=== PATIENT | female | born 2005 | race Caucasian/White ===

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

== ENCOUNTER 2023-11-02 18:15 | Emergency (ER) | payer MEDICAID ==
[~2023-11-02] VITALS: Ht 154.9 cm; Wt 48.2 kg
[~2023-11-02 18:15] MED LIST changes: +ALBU6.7H14 INH; -ALBU6.7H9 INH
[2023-11-02 18:19] VITALS: BP 113/66; PULSE 80; RESP 17; TEMP 97.7; O2SAT 97
== END 2023-11-02 19:14 | disposition left against medical advice (07) ==
LOC: ER 18:15
DX: U07.1 COVID-19 (principal); Z53.21 Procedure and treatment not carried out due to patient leaving prior to being seen by health care provider
CPT/HCPCS: 36415; 87811

== ENCOUNTER 2023-11-07 16:28 | Emergency (ER) | payer MEDICAID ==
[~2023-11-07] VITALS: Ht 154.9 cm; Wt 51.6 kg
[2023-11-07 16:47] VITALS: BP 102/68; PULSE 104; RESP 18; TEMP 98.8; O2SAT 98
== END 2023-11-07 18:17 | disposition home or self-care (01) ==
LOC: ER 16:29
DX: U07.1 COVID-19 (principal); F12.90 Cannabis use, unspecified, uncomplicated; F15.90 Other stimulant use, unspecified, uncomplicated; Z79.899 Other long term (current) drug therapy
CPT/HCPCS: 36415; 87811; 99283